=== PATIENT | male | born 1980 | race Caucasian/White ===

== ENCOUNTER 2020-01-03 17:57 | Emergency (ER) | payer OTHER ==
--- NOTE | 2020-01-03 18:16 | ED Physician Documentation ---
PD HPI ABD PAIN - Stated complaint Stated Complaint: LOWER ABD PAIN, FEVER - Chief complaint Chief Complaint: Abd Pain - History obtained from History obtained from: Patient (39-year-old gentleman with history of diverticulitis x1 5 years ago managed conservatively without surgery. No history of abdominal surgeries. Had some mild low back pain yesterday but today developed gradual onset lower abdominal pain associated with fever this aft ernoon. He has had some loose diarrheal bowel movements but not bloody. No nausea. Declines pain medication on initial evaluation.) Review of Systems Ten Systems: 10 systems reviewed and negative Constitutional: reports: Fever, Chills Cardiac: denies: Chest pain / pressure, Palpitations Respiratory: denies: Dyspnea, Cough GI: reports: Abdominal Pain. denies: Nausea, Vomiting, Constipation, Hematemesis, Bloody / black stool PD PAST MEDICAL HISTORY - Past Medical History Past Medical History: Yes GI: Diverticulitis - Past Surgical History Past Surgical History: No - Present Medications Home Medications: Ambulatory Orders Medication Instructions Recorded Confirmed Ciprofloxacin HCl [Cipro] 500 mg PO BID #20 tablet 01/03/20 metroNIDAZOLE [Flagyl] 500 mg PO TID #30 tablet 01/03/20 - Allergies Allergies/Adverse Reactions: Allergies Allergy/AdvReac Type Severity Reaction Status Date / Time No Known Drug Allergies Allergy Verified 01/03/20 18:06 - Social History Does the pt have substance abuse?: No - Family History Family history: reports: Non contributory PD ED PE NORMAL - Vitals Vital signs reviewed: Yes - General General: Alert and oriented X 3, No acute distress - HEENT HEENT: PERRL, EOMI - Neck Neck: Supple, no meningeal sign, No bony TTP - Cardiac Cardiac: RRR, No murmur - Respiratory Respiratory: No respiratory distress, Clear bilaterally - Abdomen Abdomen: Other (Soft with mild lower abdominal tenderness most marked in the left lower quadrant without surgical signs) - Back Back: No CVA TTP, No spinal TTP - Derm Derm: Normal color, Warm and dry - Neuro Neuro: Alert and oriented X 3, Normal speech - Psych Psych: Normal mood, Normal affect Results - Vitals Vitals: Vital Signs - 24 hr 01/03/20 01/03/20 01/03/20 18:06 19:13 20:05 Temperature 38.4 C H Heart Rate 110 H 100 95 Respiratory 18 18 18 Rate Blood Pressure 140/90 H 128/86 H 132/76 H O2 Saturation 97 98 96 Oxygen O2 Source Room air - Labs Labs: Laboratory Tests 01/03/20 01/03/20 01/03/20 18:19 18:22 18:22 WBC 17.2 H RBC 5.67 Hgb 15.7 Hct 46.5 MCV 82.0 MCH 27.7 MCHC 33.8 RDW 13.0 Plt Count 215 MPV 11.5 H Neut # (Auto) 12.8 H Lymph # (Auto) 2.2 [place] # (Auto) 1.9 H Eos # (Auto) 0.1 Baso # (Auto) 0.1 Absolute Nucleated RBC 0.00 Band Neuts % (Manual) Not Reportable Abnorm Lymph % (Manual) Not Reportable Nucleated RBC % 0.0 Neutrophils # (Manual) Not Reportable Lymphocytes # (Manual) Not Reportable Monocytes # (Manual) Not Reportable Eosinophils # (Manual) Not Reportable Basophils # (Manual) Not Reportable Differential Comment MANUAL=AUTO DIFF Manual Slide Review Indicated Platelet Estimate NORMAL (130-450,000) Platelet Morphology NORMAL APPEARANCE RBC Morph Micro Appear NORMAL APPEARANCE Sodium 137 Potassium 3.6 Chloride 100 L Carbon Dioxide 30 Anion Gap 7.0 BUN 10 Creatinine 1.0 Estimated GFR (MDRD) 84 L Glucose 103 H Calcium 9.4 Total Bilirubin 1.0 AST 26 ALT 39 Alkaline Phosphatase 58 Total Protein 8.4 H Albumin 4.7 Globulin 3.8 Albumin/Globulin Ratio 1.3 Lipase 27 Urine Color YELLOW Urine Clarity CLEAR Urine pH 5.5 Ur Specific [place] <=1.005 Urine Protein NEGATIVE Urine Glucose (UA) NEGATIVE Urine Ketones NEGATIVE Urine Occult Blood NEGATIVE Urine Nitrite NEGATIVE Urine Bilirubin NEGATIVE Urine Urobilinogen 0.2 (NORMAL) Ur Leukocyte Esterase NEGATIVE Ur Microscopic Review NOT INDICATED Urine Culture Comments NOT INDICATED - Rads (name of study) CT A/P Radiology: EMP read contemporaneously (uncomplicated diverticulitis) PD MEDICAL DECISION MAKING - ED course ED course: 39-year-old gentleman with history of diverticulitis presents with symptoms consistent with same. Given the fever and elevated white count a CT was done to ensure that it was not complicated diverticulitis and it was not. Got a dose of IV Cipro and Flagyl here. Departure - Departure Disposition: 01 Home, Self Care Clinical Impression: Diverticulitis of gastrointestinal tract Condition: Good Record reviewed to determine appropriate education?: Yes Instructions: ED Diverticulitis Prescriptions: Ciprofloxacin HCl [Cipro] 500 mg PO BID #20 tablet metroNIDAZOLE [Flagyl] 500 mg PO TID #30 tablet Comments: CAT scan today confirms uncomplicated diverticulitis. [place] Consider follow-up colonoscopy in 6 to 8 weeks. Do not drink alcohol or exercise very heavily while on the antibiotics. Tylenol or ibuprofen as needed for pain. Return if worse or if not improving over the next 2 to 3 days.
[2020-01-03] MEDS ORDERED: IOVERSOL 320 100 ML VIAL IVP ONE ×2 (18:23→19:09)
[2020-01-03 18:31] LABS: BASOPHILS # (AUTO) 0.1 10^3/uL (0.0-0.1); BASOPHILS % (AUTO) 0.3 %; EOSINOPHILS # (AUTO) 0.1 10^3/uL (0.0-0.7); EOSINOPHILS % (AUTO) 0.8 %; HGB - HEMOGLOBIN 15.7 g/dL (14.0-18.0); LYMPHOCYTES # (AUTO) 2.2 10^3/uL (1.5-3.5); MEAN CORPUSCULAR HEMOGLOBIN 27.7 pg (27.0-31.0); MEAN CORPUSCULAR HGB CONC 33.8 g/dL (32.0-36.0); MEAN PLATELET VOLUME 11.5 fL (7.4-11.4); MONOCYTES # (AUTO) 1.9 10^3/uL (0.0-1.0); MONOCYTES % (AUTO) 10.8 %; NEUTROPHILS # (AUTO) 12.8 10^3/uL (1.5-6.6); NEUTROPHILS % (AUTO) 74.5 %; PLT - PLATELET COUNT 215 10^3/uL (130-450); RED BLOOD COUNT 5.67 10^6/uL (4.70-6.10); WHITE BLOOD COUNT 17.2 x10^3/uL (4.8-10.8)
[2020-01-03 18:41] LABS: BILIRUBIN,URINE NEGATIVE (NEGATIVE); GLUCOSE, URINE (UA) NEGATIVE (NEGATIVE); KETONES,URINE (UA) NEGATIVE (NEGATIVE); LEUKOCYTE ESTERASE, URINE NEGATIVE (NEGATIVE); NITRITE,URINE NEGATIVE (NEGATIVE); OCCULT BLOOD,URINE NEGATIVE (NEGATIVE); PH,URINE 5.5 PH (5.0-7.5); PROTEIN,URINE NEGATIVE (NEGATIVE); UROBILINOGEN,URINE 0.2 (NORMAL) E.U./dL (NORMAL)
[2020-01-03 18:43] LABS: CLARITY,URINE CLEAR (CLEAR)
[2020-01-03 18:46] LABS: ALBUMIN 4.7 g/dL (3.2-5.5); ALBUMIN/GLOBULIN RATIO 1.3 (1.0-2.2); CALCIUM 9.4 mg/dL (8.5-10.3); TOTAL PROTEIN 8.4 g/dL (6.7-8.2)
[2020-01-03 18:58] LABS: DIFFERENTIAL COMMENT MANUAL=AUTO DIFF; PLATELET ESTIMATE, MANUAL NORMAL (130-450,000) (NORMAL); PLATELET MORPHOLOGY NORMAL APPEARANCE (NORMAL); RBC MORPHOLOGY (MULTIPLE) NORMAL APPEARANCE (NORMAL)
[2020-01-03] MEDS ORDERED: metroNIDAZOLE 500 MG/100 ML 500 MG/100 ML BAG IV ONE (19:14)
[2020-01-03] MEDS ORDERED: CIPROFLOXACIN 400 MG/200 ML 400 MG/200 ML BAG IV STA (19:14)
[2020-01-03] MEDS ORDERED: KETOROLAC 30 MG/ML VIAL IVP STA (19:17)
--- NOTE | 2020-01-03 19:51 | CT Report ---
PROCEDURE: Abdomen/Pelvis W INDICATIONS: Low abd pain IV only CONTRAST: IV CONTRAST: Optiray 320 ml: 100 PO CONTRAST: *NO PO CONTRAST TECHNIQUE: After the administration of oral and intravenous contrast, 5 mm thick sections acquired from the diap hragms to the symphysis. 5 mm thick coronal and sagittal reformats were acquired. For radiation dos e reduction, the following was used: automated exposure control, adjustment of mA and/or kV accordin g to patient size. COMPARISON: None. FINDINGS: Image quality: Excellent. ABDOMEN: Lung bases: Lung bases are clear. Heart size is normal. Solid organs: Liver and spleen are normal in size and enhancement. Gallbladder is normal. Biliary system is non dilated. Pancreas enhances normally. No adrenal nodules. Kidneys demonstrate normal size and enhancement, without hydronephrosis. There is a 2 cm simple appearing cyst in the superior pole of left kidney. Peritoneum and bowel: There are scattered colonic diverticula. There is focal thickening in the prox imal sigmoid colon with inflammatory stranding consistent with acute diverticulitis. A trace amount o f free fluid is seen in the left paracolic gutter and pelvis. There is no findings to suggest diverti cular perforation or abscess. Bowel loops demonstrate normal caliber. No free air. Nodes and vessels: No retroperitoneal or mesenteric adenopathy by size criteria. Aorta and inferior vena cava are normal in size. Miscellaneous: No ventral hernias. PELVIS: Genitourinary: Bladder wall thickness is normal. Miscellaneous: No inguinal hernias or adenopathy. Bones: No suspicious bony lesions. No vertebral body compression fractures. IMPRESSION: 1. Acute uncomplicated sigmoid diverticulitis. There is a small amount of free fluid. No findings to suggest diverticular perforation or abscess. 2. A 2 cm simple appearing cyst in left kidney. Reviewed by: Rosa Bill MD on 01/03/2020 7:50 PM PDT Approved by: Rosa Bill MD on 01/03/2020 7:50 PM PDT Station ID: [id number]
[2020-01-03 21:27] VITALS: BP 124/78
== END 2020-01-03 21:38 | disposition home or self-care (01) ==
LOC: ED 17:57
DX: K57.32 Diverticulitis of large intestine without perforation or abscess without bleeding (principal)
CPT/HCPCS: 36415; 74177; 80053; 81003; 83690; 85025; 96365; 96375; 99284; Q9967; 81001; 87086

== ENCOUNTER 2020-04-12 13:22 | Outpatient (CLI) | payer OTHER ==
[2020-04-12 14:01] VITALS: BP 128/88
--- NOTE | 2020-04-12 14:01 | SLEEP CARE CONSULTATION ---
Information from patient questionnaire entered by Hannah Jamison. I have reviewed and concur with the information entered by Hannah Jamison. This document represents the service I personally performed and the decisions made by me, Chelsy Mccarthy ARNP. History of Present Illness Service Date and Time: 04/12/2020 1322 Reason for Visit: New patient Chief Complaint: reports: Insomnia, Unrefreshed sleep, Snoring, Excessive daytime sleepiness, Observed pauses in breathing, Fatigue, Frequent awakenings at night Date of Onset: 2014 Usual bedtime: 2029; same on weekends Time it takes to fall asleep: 3+ hours Snores at night: Yes Observed to quit breathing while asleep: Yes Sleeps alone due to snoring: No Number of times waking at night: 4-6 Reasons for waking at night: reports: Snoring, Other (restlessness). denies: Choking, Gasping for air Toss, Turn, or Twitch while sleeping: Yes Recalls having dreams: No Usually gets out of bed at: 0530; [id number] on weekends Feels refreshed in the morning: No Morning headache: No Sleepy or fatigued during the day: Yes Ever fallen asleep while driving: No Takes day naps: No Dreams during day naps: No Prior sleep studies: No Additional HPI information: I had the pleasure of seeing DOROTHY LUQUE today regarding the possibility of him having a sleep disorder. His current complaints are insomnia, snoring, observed pauses in breathing, frequent awakenings at night, unrefreshed sleep, excessive daytime sleepiness and fatigue. Patient states that recently his snoring is getting worse. He is waking up after pauses in his breathing as witness by his . His is really concerned and wanting him to get checked, so he finally got a referral for testing. He is waking up several times a night and is always tired in the morning. He has no medical conditions. His father snores loudly but he hall not think he has been evaluated for sleep disorders. - Parasomnia Symptoms Ever been unable to move upon waking from sleep: No Walks in sleep: No Talks in sleep: No Ever acted out dreams in sleep: No Ever felt weak in the knees when startled or emotional: No Bothered by creepy, crawly, restless sensations in legs: No Problems with memory or concentration: No Subjective Initial [place] Sleepiness Scale score: 7 (in 2020) Past Medical History Past Medical History: denies: Hypertension, Congestive Heart Failure, Diabetes, Coronary Heart Disease, Arrythmia, Hypothyroidism, Anemia, Anxiety, Impotence, Depression, Mood disorder, GERD, Attention deficit Social History The patient's occupation is active . Patient is and lives in [place]. Have you smoked in the past 12 months: No Alcohol use: Yes Alcohol amount and frequency: 2 rarely Caffeine use: Yes Caffeine amount and frequency: 2-3/day Family History Family history of sleep disordered breathing: Yes Family Hx Sleep Apnea: Father: Snoring Allergies and Home Medications Drug allergies reviewed: Yes (NKDA) Home medication list reviewed: Yes (none) Review of Systems Weight gain over past 5 years: 15 Cardiovascular: denies: high blood pressure, palpitations, chest pain, irregular heart rate or pulse, leg or foot swelling Respiratory: denies: shortness of breath, chronic cough Gastrointestinal: denies: heartburn, difficulty swallowing Urinary: denies: impotence Neurological: reports: headaches (caffiene headaches mostly, responds to exedrine). denies: seizure, head trauma, speech dysfunction, gait or balance problems, fainting or unconsciousness Psychiatric: denies: Attention Deficit Hyperactivity, anxiety, depression, mood disorder, claustrophobia Ear/Nose/Throat: reports: wisdom teeth removed. denies: nasal congestion, sinus problems, nose bleeds, dry mouth/throat, injury to nose, tonsillectomy Endocrine: reports: sluggishness. denies: thyroid disease Musculoskeletal: reports: back pain, muscle pain or cramping Immunologic: denies: allergies to food or environment Physical Exam Blood Pressure: 128/88 Cuff size: long Heart Rate: 65 O2 Saturation: 98 Height: 6 ft 2 in Weight: 271 lb Body Mass Index: 34.7 BMI Classification: Obese Neck circumference: 18.5 (inches) HEENT: No craniofacial malformation Nostrils: patent to airflow Turbinates: normal Septum: midline Mouth and throat: narrow oropharynx Soft palate: normal Hard palate: arched Uvula: normal Uvula visualization: 25% Mallampati Class III Tongue: normal in size Tonsils: 1+ Chin and jaw: normal size and position Neck: normal w/o lymphadenopathy or thyromegaly Heart: regular rate and rhythm Lungs: clear bilaterally Impression and Plan 1. Suspected Obstructive Sleep Apnea-Hypopnea Syndrome, as suggested by a history of loud and irregular snoring, observed cessation of breath while asleep, frequent awakening during the night, unrefreshed sleep, and excessive daytime sleepiness. I reviewed with patient that a narrow oropharynx and obesity are common predisposing factors for obstructive sleep apnea-hypopnea syndrome. I recommend proceeding to polysomnography to confirm the diagnosis and to assess severity. If the patient has significant sleep disordered breathing, a manual CPAP titration study will also be performed to find the optimal treatment pressure. I informed the patient of what the sleep studies involve and after some discussion, obtained agreement to proceed. The pathophysiology of obstructive sleep apnea-hypopnea syndrome was discussed with the patient and health risks of cardiovascular and cerebrovascular disease if not treated. AAS brochure for obstructive sleep apnea-hypopnea syndrome given and reviewed. Risks of drowsy driving discussed in detail and patient advised to avoid long distance driving and to sinker puller at the first sign of drowsiness. Patient agreed to plan. * Schedule polysomnography +- manual CPAP titration study. * Avoid long distance driving or driving when feeling sleepy. * Avoid alcohol, sedative and muscle relaxant around bedtime. * Attempt to lose weight. * Review instructions provided by trained office staff on how to prepare for the sleep study. * Return for follow-up after sleep study completed. Visit Type: In Office Time Spent with Patient (minutes): 30 Provider Statement: I spent 100% of the Face to Face Visit with the patient with greater than 50% spent counseling the patient and coordination of care.
== END 2020-04-12 13:23 | disposition home or self-care (01) ==
LOC: SC 13:22
PROVIDERS: ATTEND Nurse Practitioner Family
DX: R06.83 Snoring (principal); G47.10 Hypersomnia, unspecified; R53.83 Other fatigue; G47.8 Other sleep disorders; R06.81 Apnea, not elsewhere classified; E66.9 Obesity, unspecified; Z68.34 Body mass index [BMI] 34.0-34.9, adult
CPT/HCPCS: 99204; 99212

== ENCOUNTER 2020-05-15 19:04 | Outpatient (CLI) | payer OTHER | END 2020-05-15 19:05 | disposition home or self-care (01) | LOC: SC 19:04 | PROVIDERS: ATTEND Nurse Practitioner Family | DX: G47.33 Obstructive sleep apnea (adult) (pediatric) (principal); E66.9 Obesity, unspecified; Z68.34 Body mass index [BMI] 34.0-34.9, adult | CPT/HCPCS: 95810 ==

== ENCOUNTER 2020-05-24 14:48 | Outpatient (CLI) | payer OTHER ==
--- NOTE | 2020-05-24 15:30 | SLEEP CARE CONSULTATION ---
Information from patient questionnaire entered by Fawad Stevens. I have reviewed and concur with the information entered by Fawad Stevens. This document represents the service I personally performed and the decisions made by me, Chelsy Mccarthy ARNP. History of Present Illness Service Date and Time: 05/24/2020 144 Initial [place] Sleepiness Scale score: 7 (in 2019) Current [place] Sleepiness Scale score: 12 Additional HPI information: DOROTHY LUQUE returns for follow up and results of the recently performed polysomnography. I explained the pathophysiology behind obstructive sleep apnea. We then spent quite a bit of time discussing different treatment options. For mild obstructive sleep apnea, surgery and oral appliance are alternatives to nasal CPAP therapy but in moderate or severe cases, nasal CPAP is the most effective and reliable treatment. After some discussion, the patient opted to go with the nasal CPAP therapy. Nasal autoCPAP set at 4-15 cmH20 will be ordered with rationale explained. A manual titration study will be ordered if unable to find optimal pressure with office adjustments. I explained how CPAP machine works with sample devices [id number] Dreamstation and Zentric [id number] and what to expect when using the machine. Using CPAP every night in order to get used to it was emphasized. Patient advised to put CPAP mask on before getting into bed so as not to fall asleep without CPAP. To assist acclimation to CPAP use, it could also be used for a short time during day while reading or watching TV. The patient was instructed to call the CPAP supplier to discuss any mechanical problem that may occur. If the mask given is uncomfortable or is difficult to keep on through the night even with adjustment, contact the CPAP supplier as many will replace with another mask style if notified before 30 days. If snoring or perceives is not getting enough air or too much air from the machine, notify this office. AASM patient education PAP tips reviewed and given to patient. Patient counseled not drink alcohol less than 4 hours before bedtime as it can increase snoring and apnea. Patient was cautioned about risks of drowsy driving until sleepiness symptoms resolve. Sleep Study - Results Type of Sleep Study: Polysomnography Prior sleep studies: No Polysomnography/Home Sleep Study results: IMPRESSION: The quality of the study is good. The patient had normal sleep efficiency. The sleep architecture was normal as well. Respiratory monitoring showed mild obstructive sleep apnea- hypopnea (AHI = 14.7) associated with oxyhemoglobin desaturation and mild hypoxia (noam oxygen saturation of 84 %) but not sleep fragmentation. The respiratory events occurred mainly during supine sleep (supine AHI = 64.2; non-supine = 8.02). Snore was light to loud in intensity. There was no significant periodic leg movement of sleep. Cardiac rhythm was normal sinus rhythm without significant arrhythmia. No abnormal behavior (parasomnia) observed during the night. Allergies and Home Medications Drug allergies reviewed: Yes (NKDA) Home medication list reviewed: Yes (no changes) Review of Systems Review of systems same as previous: Yes (no changes) Physical Exam Heart Rate: 71 O2 Saturation: 98 Height: 6 ft 2 in Weight: 268 lb Body Mass Index: 34.4 BMI Classification: Obese Impression and Plan 1. Obstructive Sleep Apnea-Hypopnea Syndrome, mild with AHI 14.7, with lowest oxygen saturation of 84%. Obviously this is the cause of the patients symptoms of unrefreshed sleep, and excessive daytime sleepiness. Positive pressure therapy could benefit his overall health. As mentioned above, the patient will be started on nasal autoCPAP therapy with pressure set at 4-15 cmH2O. Compliance guidelines also reviewed. A copy of compliance guidelines will be given for reference at check out. Because the apnea is more severe supine, I instructed to avoid sleeping supine using pillow positioning until able to start CPAP use. * Nasal auto CPAP therapy, pressure at 4-15 cm H2O. * Attempt to lose weight. * Avoid alcohol consumption near bedtime. * Avoid supine sleep until using CPAP. * The patient is again cautioned about driving until sleepiness completely resolves. * Return one month after CPAP obtained. I will assess response to therapy and compliance at that time. Visit Type: In Office Time Spent with Patient (minutes): 17 Provider Statement: I spent 100% of the Face to Face Visit with the patient with greater than 50% spent counseling the patient and coordination of care.
== END 2020-05-24 14:49 | disposition home or self-care (01) ==
LOC: SC 14:48
PROVIDERS: ATTEND Nurse Practitioner Family
DX: G47.33 Obstructive sleep apnea (adult) (pediatric) (principal); E66.9 Obesity, unspecified; Z68.34 Body mass index [BMI] 34.0-34.9, adult
CPT/HCPCS: 99212

== ENCOUNTER 2020-07-18 07:53 | Outpatient (CLI) | payer OTHER ==
--- NOTE | 2020-07-18 08:44 | SLEEP CARE CONSULTATION ---
Information from patient questionnaire entered by Marixa Gill. I have reviewed and concur with the information entered by Marixa Gill. This document represents the service I personally performed and the decisions made by me, Chelsy Mccarthy ARNP. History of Present Illness Service Date and Time: 07/18/2020 0753 Previous diagnosis: Mild, Obstructive Sleep Apnea-Hypopnea Syndrome AHI: 14.7 (in 2019) Reason for follow up: first compliance Equipment type: CPAP Equipment obtained from: Other ([facility]; got initial supplies and machine) Mask style: Full face Mask brand: Resmed Backup mask available: Yes (other mask) Last cushion change: 2 weeks Prior sleep studies: Yes Year and Where: 2019 - [facility] sleep Type of Sleep Study: Polysomnography HPI additional information: DOROTHY LUQUE was diagnosed to have mild, AHI 14.7, obstructive sleep apnea- hypopnea syndrome and returned today for CPAP therapy first compliance follow- up. CPAP Compliance Data - Data Reviewed with Patient Average duration of nightly device use: 7 hr 33 min Compliance rate %: 100 Current pressure setting (cmH2O): 4-15 (median 6.8, 95% 10.3, max 12.1) Humidity settin Average residual AHI: 1.9 Central apnea: 0.3 Obstructive apnea: 1.3 Subjective Patient concerns: reports: mask discomfort (getting skin irritation after wearing mask; needs to adjust a bit to get it to fit comfortably), air blowing in eyes, mask leak noise, condensation in mask/hose (more in mask), dry mouth, nose, throat. denies: aerophagia, nasal congestion, epistaxis, other Observed to snore while using device: Yes (he is a little, but is much better than before) Current pressure setting perceived as: comfortable On therapy, patient: reports: sleeping better, awakening more refreshed, being more awake and alert during the day, more rested overall. denies: drowsiness while driving Initial [place] Sleepiness Scale score: 7 (in 2019) Current [place] Sleepiness Scale score: 7 Allergies and Home Medications Drug allergies reviewed: Yes (NKDA) Home medication list reviewed: Yes (no changes) Review of Systems Review of systems same as previous: Yes (no changes) Physical Exam Heart Rate: 67 O2 Saturation: 98 Height: 6 ft 2 in Weight: 269 lb Body Mass Index: 34.5 BMI Classification: Obese Impression and Plan 1. Obstructive Sleep Apnea-Hypopnea Syndrome, mild, with excellent treatment compliance and good apnea control. On CPAP therapy, the patient has better sleep quality and is more rested overall. He has been trying to sleep on his side and getting air leaking into his eyes and leak noises. He has been using eye drops to moisten his eyes since he already has a dry eye problem. Mask leaks can be reduced by washing mask daily and changing mask cushions more frequently to improve mask seal and comfort. Additionally, mask leaks predominately from when patient sleeps on their side can be reduced by using a CPAP pillow. A CPAP pillow sample was shown. This and other styes can be purchased online. I also encouraged him to use a sleeping mask over his eyes and eye moistening drops before bedtime to reduce air in eyes and eye dryness. He has been having some issue with the mask not fitting well over the top of his nose and causing a rash. I will write for a mask refitting to see if he can find a better fitting mask and talked to him about mask barriers to protect his skin when wearing the mask. I will adjust his pressure to 7-11 cm H2O to reflect the pressures he has been using with good control of his apnea. Patient's apnea severity and rationale for treatment to reduce apnea, improve sleep quality and reduce cardiovascular and cerebrovascular events was reviewed. * Change auto CPAP pressure to 7-11 cmH2O * Notify me if snoring with mask or feeling that the pressure is too much or too little * Attempt to lose weight * Call this office if any problems using CPAP * Return for follow up in 1-2 months , or sooner if concerns arise Counseling Topics: Spare mask, Weight loss health impact Visit Type: In Office Time Spent with Patient (minutes): 24 Provider Statement: I spent 100% of the Face to Face Visit with the patient with greater than 50% spent counseling the patient and coordination of care.
== END 2020-07-18 07:54 | disposition home or self-care (01) ==
LOC: SC 07:53
PROVIDERS: ATTEND Nurse Practitioner Family
DX: G47.33 Obstructive sleep apnea (adult) (pediatric) (principal); E66.9 Obesity, unspecified; Z68.34 Body mass index [BMI] 34.0-34.9, adult
CPT/HCPCS: 99212; 99213

== ENCOUNTER 2020-09-05 14:41 | Outpatient (CLI) | payer OTHER ==
--- NOTE | 2020-09-05 15:16 | SLEEP CARE CONSULTATION ---
Information from patient questionnaire entered by Marixa Gill. I have reviewed and concur with the information entered by Marixa Gill. This document represents the service I personally performed and the decisions made by , Chelsy Mccarthy ARNP. History of Present Illness Service Date and Time: 09/05/2020 1441 Previous diagnosis: Mild, Obstructive Sleep Apnea-Hypopnea Syndrome AHI: 14.7 (in 2019) Reason for follow up: other (6 week with pressure change) Equipment type: CPAP Equipment obtained from: Other ([facility]; getting supplies) Mask style: Full face Backup mask available: Yes (old mask) Last cushion change: 1 month Prior sleep studies: Yes Year and Where: 2019 - [facility] Type of Sleep Study: Polysomnography HPI additional information: DOROTHY LUQUE was diagnosed to have mild, AHI 14.7, obstructive sleep apnea- hypopnea syndrome and returned today for CPAP therapy 6 week pressure change follow-up. CPAP Compliance Data - Data Reviewed with Patient Average duration of nightly device use: 7 hr 17 min Compliance rate %: 93 (40 days) Current pressure setting (cmH2O): 7-11 Humidity settin Average residual AHI: 1.4 Subjective Patient concerns: reports: mask discomfort (still not fitting after 1-2 weeks of use), air blowing in eyes, mask leak noise, condensation in mask/hose (intermittent, 1-2 times a week), dry mouth, nose, throat (back and forth with condensation). denies: aerophagia, nasal congestion, epistaxis, other Observed to snore while using device: No (once in a while) Current pressure setting perceived as: comfortable On therapy, patient: reports: sleeping better, awakening more refreshed, being more awake and alert during the day, more rested overall. denies: drowsiness while driving Initial [place] Sleepiness Scale score: 7 (in 2020) Current [place] Sleepiness Scale score: 9 Allergies and Home Medications Home medication list reviewed: Yes (no changes) Review of Systems Review of systems same as previous: Yes (no changes) Physical Exam Heart Rate: 96 O2 Saturation: 98 Height: 6 ft 2 in Weight: 272 lb Body Mass Index: 34.9 BMI Classification: Obese Impression and Plan 1. Obstructive Sleep Apnea-Hypopnea Syndrome, mild, with good treatment compliance and good apnea control. On CPAP therapy, the patient has better sleep quality and is more rested overall. Patient has had some issues with the mask fit. [facility] has still not reached out to him about changing the mask. I advised him to reach out to them again and if unable to contact them or no results to call our office for assistance. He is getting air leaking in his eyes from the mask not fitting well after the initial 1-2 weeks of use. Mask leaks can be reduced by washing mask daily and changing mask cushions more frequently to improve mask seal and comfort. He has been using some wipes on the mask and I encouraged him to try just warm soapy water because the cleaning chemicals may be adding to the warping of the mask plastic and causing increase in leaking. He also gets some condensation in the hose or dry mouth intermittently, he thinks his humidity is at 5-6 area and the heated hose may be about 90 degrees. He has been adjusting the machine settings up and down but has not yet found a good setting. I advised him to move the machine lower than his head which can reduce condensation getting into the mask. He is to check the ambient temperature of his sleeping room as this can affect the humidity/condensation from the machine as well and make any changes as needed. He voiced understanding. Patient's apnea severity and rationale for treatment to reduce apnea, improve sleep quality and reduce cardiovascular and cerebrovascular events was reviewed. * Continue autoCPAP pressure at 7-11 cmH2O * Notify me if snoring with mask or feeling that the pressure is too much or too little * Attempt to lose weight * Call this office if any problems using CPAP * Return for follow up in 3 months, or sooner if concerns arise Counseling Topics: Spare mask, Weight loss health impact Visit Type: In Office Time Spent with Patient (minutes): 21 Provider Statement: I spent 100% of the Face to Face Visit with the patient with greater than 50% spent counseling the patient and coordination of care.
== END 2020-09-05 14:42 | disposition home or self-care (01) ==
LOC: SC 14:41
PROVIDERS: ATTEND Nurse Practitioner Family
DX: G47.33 Obstructive sleep apnea (adult) (pediatric) (principal); E66.9 Obesity, unspecified; Z68.34 Body mass index [BMI] 34.0-34.9, adult
CPT/HCPCS: 99212; 99213

== ENCOUNTER 2020-12-06 14:26 | Outpatient (CLI) | payer OTHER ==
--- NOTE | 2020-12-06 14:45 | SLEEP CARE CONSULTATION ---
Information from patient questionnaire entered by Marixa Gill. I have reviewed and concur with the information entered by Marixa Gill. This document represents the service I personally performed and the decisions made by , Chelsy Mccarthy ARNP. History of Present Illness Service Date and Time: 12/06/2020 1426 Previous diagnosis: Mild, Obstructive Sleep Apnea-Hypopnea Syndrome AHI: 14.7 (in 2019) Reason for follow up: three month Equipment type: CPAP Equipment obtained from: Other ([facility]; getting supplies) Mask style: Full face (scheduled for a fitting for mask) Backup mask available: Yes (old mask) Last cushion change: 1 month Prior sleep studies: Yes Year and Where: 2019 - [facility] Type of Sleep Study: Polysomnography HPI additional information: DOROTHY LUQUE was diagnosed to have mild, AHI 14.7, obstructive sleep apnea- hypopnea syndrome and returned today for CPAP therapy three month follow-up. CPAP Compliance Data - Data Reviewed with Patient Average duration of nightly device use: 6 hr 46 min Compliance rate %: 89 (90 days) Current pressure setting (cmH2O): 7-11 Humidity settin Average residual AHI: 1.5 Average large leak: 4.0 L/min Subjective Patient concerns: reports: mask discomfort, air blowing in eyes, mask leak noise, dry mouth, nose, throat (dry mouth, getting more rare with back on auto for humidity.), other (snore while using device). denies: aerophagia, condensation in mask/hose, nasal congestion, epistaxis Observed to snore while using device: Yes (not very much, once in a while) Current pressure setting perceived as: comfortable On therapy, patient: reports: sleeping better, awakening more refreshed, being more awake and alert during the day, more rested overall. denies: drowsiness while driving Initial [place] Sleepiness Scale score: 7 (in 2020) Current [place] Sleepiness Scale score: 5 Allergies and Home Medications Home medication list reviewed: Yes (no changes) Review of Systems Review of systems same as previous: Yes (no changes) Physical Exam Heart Rate: 77 O2 Saturation: 96 Height: 6 ft 2 in Weight: 273 lb Body Mass Index: 35.0 BMI Classification: Obese Impression and Plan 1. Obstructive Sleep Apnea-Hypopnea Syndrome, mild, with good treatment compliance and good apnea control. On CPAP therapy, the patient has better sleep quality and is more rested overall. He is still having issues with current full face mask. He has air blowing in his eyes and mask leak noises. His eyes are dry in the morning. He has tried to use as liner and to cover his eyes. He has an appointment for a mask fitting to try a under nose/over mouth full face mask like the Airfit F30. He is otherwise satisfied with his treatment and has good response from CPAP therapy. Patient's apnea severity and rationale for treatment to reduce apnea, improve sleep quality and reduce cardiovascular and cerebrovascular events was reviewed. * Continue auto CPAP pressure at 7-11 cmH2O * Notify me if snoring with mask or feeling that the pressure is too much or too little * Attempt to lose weight * Call this office if any problems using CPAP * Return for follow up in 6 months, or sooner if concerns arise Counseling Topics: Spare mask, Weight loss health impact Visit Type: In Office Time Spent with Patient (minutes): 14 Provider Statement: I spent 100% of the Face to Face Visit with the patient with greater than 50% spent counseling the patient and coordination of care.
== END 2020-12-06 14:27 | disposition home or self-care (01) ==
LOC: SC 14:26
PROVIDERS: ATTEND Nurse Practitioner Family
DX: G47.33 Obstructive sleep apnea (adult) (pediatric) (principal); E66.9 Obesity, unspecified; Z68.35 Body mass index [BMI] 35.0-35.9, adult
CPT/HCPCS: 99212

== ENCOUNTER 2021-07-05 08:44 | Outpatient (CLI) | payer OTHER ==
--- NOTE | 2021-07-05 10:38 | MRI Report ---
PROCEDURE: Knee RT W/O INDICATIONS: PAIN IN KNEE TECHNIQUE: Noncontrast sagittal PD fast spin echo and T2 fast spin echo with fat saturation, sagittal 3-D gradie nt sequence with fat saturation; coronal T1 spin echo and PD fast spin echo with fat saturation, and axial PD fast spin echo with fat saturation through the knee. COMPARISON: None. FINDINGS: Image quality: Excellent. Menisci: The medial and lateral menisci demonstrate normal morphology and internal signal. The meni scal root ligaments appear intact. Cruciate ligaments: The anterior and posterior cruciate ligaments appear intact. Medial structures: The medial collateral ligament appears intact. Visualized portions of the pes ans erinus tendons appear normal. There is a small amount of medial bursal fluid. Lateral structures: The lateral collateral ligament, long and short heads of the biceps femoris tend on appear intact. The popliteus tendon appears normal. Iliotibial band appears normal. Anterior structures: The quadriceps and patellar tendons appear intact. Mild T2 signal lesion within the quadriceps and patellar tendons at the patellar insertion sites. Mild medial patellar subluxatio n. No femoral trochlear dysplasia or ventral trochlear prominence. No edema in the infrapatellar fat pad. Bones and cartilage: No bone marrow contusions or fractures. The cartilage of the medial and latera l femorotibial compartments, as well as the patellofemoral compartment, appears normal in thickness. Joint space: There is a small knee joint effusion and a trace Stewart's cyst. Normal appearing synovi al plicae are incidentally noted. IMPRESSION: 1. No internal derangement. 2. Mild medial bursitis. 3. Mild medial subluxation of the patella. 4. Small knee joint effusion and trace Stewart's cyst. 5. Mild quadriceps and patellar tendinopathy. Reviewed by: Steve Lambert MD on 07/05/2021 9:37 AM [place] Approved by: Steve Lambert MD on 07/05/2021 9:37 AM [facility] Station ID: [id number]
== END 2021-07-05 08:45 | disposition home or self-care (01) ==
LOC: DI 08:44
PROVIDERS: ATTEND Nurse Practitioner Family
DX: M25.561 Pain in right knee (principal); M71.561 Other bursitis, not elsewhere classified, right knee; M76.51 Patellar tendinitis, right knee; M25.461 Effusion, right knee

== ENCOUNTER 2021-07-11 08:17 | Emergency (ER) | payer OTHER ==
[2021-07-11] MEDS ORDERED: MAG HYDROX/AL HYDROX/SIMETH 30 ML UDC PO STA (08:39)
[2021-07-11] MEDS ORDERED: LIDOCAINE VISCOUS 2% 15 ML UDC MM STA (08:39)
[2021-07-11 08:55] LABS: BASOPHILS # (AUTO) 0.1 10^3/uL (0.0-0.1); BASOPHILS % (AUTO) 0.9 %; EOSINOPHILS # (AUTO) 0.3 10^3/uL (0.0-0.7); EOSINOPHILS % (AUTO) 3.7 %; HCT - HEMATOCRIT 46.6 % (42.0-52.0); HGB - HEMOGLOBIN 15.6 g/dL (14.0-18.0); LYMPHOCYTES # (AUTO) 2.1 10^3/uL (1.5-3.5); LYMPHOCYTES % (AUTO) 29.8 %; MEAN CORPUSCULAR HEMOGLOBIN 27.1 pg (27.0-31.0); MEAN CORPUSCULAR HGB CONC 33.5 g/dL (32.0-36.0); MEAN PLATELET VOLUME 11.1 fL (7.4-11.4); MONOCYTES # (AUTO) 0.8 10^3/uL (0.0-1.0); MONOCYTES % (AUTO) 11.2 %; NEUTROPHILS # (AUTO) 3.8 10^3/uL (1.5-6.6); PLT - PLATELET COUNT 256 10^3/uL (130-450); RED BLOOD COUNT 5.75 10^6/uL (4.70-6.10); RED CELL DISTRIBUTION WIDTH 12.6 % (12.0-15.0)
--- NOTE | 2021-07-11 09:12 | ED Physician Documentation ---
PD HPI CHEST PAIN - Stated complaint Stated Complaint: CHEST PX - Chief complaint Chief Complaint: Cardiac - History obtained from History obtained from: Patient - History of Present Illness Timing - onset: How many days ago (c 3) Timing - onset during: Rest Timing - duration: Days (3) Timing - details: Gradual onset, Still present Quality: Sharp, Pain Location: Substernal, Left chest Radiation: Abdominal. No: Jaw, Neck, Back, Right upper extremity Improved by: Nothing Worsened by: Other (burping) Associated symptoms: Feeling faint / dizzy. No: Shortness of air, Diaphoresis, Nausea, Vomiting, General Weakness, Palpitations, Cough Similar symptoms before: Has not had sx before Recently seen: Not recently seen - Additional information Additional information: Please well 41-year-old male developed some burping and pain in his left chest about 3 days ago when he has had persistence of the symptoms since. The burping has slowed down the pain is persisted he does not he has had much relief with the use of antacids. He does not have any injury to his chest wall that he is aware of he has not had upper respiratory tract infection. He does eyes any exertional dyspnea or change in his symptoms related to exertion. Review of Systems Constitutional: denies: Fever Eyes: denies: Decreased vision Ears: denies: Ear pain Nose: denies: Congestion Throat: denies: Sore throat Cardiac: reports: Chest pain / pressure. denies: Palpitations, Pedal edema, Calf pain Respiratory: denies: Dyspnea, Cough, Wheezing GI: reports: Abdominal Pain. denies: Nausea, Vomiting, Constipation, Diarrhea : denies: Dysuria, Frequency Skin: denies: Rash Musculoskeletal: denies: Neck pain, Back pain, Extremity pain Neurologic: denies: Generalized weakness, Focal weakness, Numbness PD PAST MEDICAL HISTORY - Past Medical History Past Medical History: Yes GI: Diverticulitis - Past Surgical History Past Surgical History: No - Present Medications Home Medications: Ambulatory Orders Medication Instructions Recorded Confirmed No Known Home Medications 07/11/21 07/11/21 - Allergies Allergies/Adverse Reactions: Allergies Allergy/AdvReac Type Severity Reaction Status Date / Time No Known Drug Allergies Allergy Verified 07/11/21 08:33 - Social History Does the pt smoke?: No Smoking Status: Never smoker Does the pt have substance abuse?: No PD ED PE NORMAL - Vitals Vital signs reviewed: Yes (hypertensive) - General General: Alert and oriented X 3, No acute distress, Well developed/nourished - HEENT HEENT: Atraumatic, PERRL, EOMI - Neck Neck: Supple, no meningeal sign, No bony TTP - Cardiac Cardiac: RRR, No murmur - Respiratory Respiratory: No respiratory distress, Clear bilaterally, Other (palpation of the chest wall anteriorly over left parasternal area reproduces the pain the patient is experiencing .) - Abdomen Abdomen: Soft, Non tender - Back Back: No CVA TTP, No spinal TTP - Derm Derm: Normal color, Warm and dry, No rash - Extremities Extremities: No deformity, No edema - Neuro Neuro: Alert and oriented X 3, 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, No motor deficit, No sensory deficit, Normal speech Eye Opening: Spontaneous Motor: Obeys Commands Verbal: Oriented GCS Score: 15 - Psych Psych: Normal mood, Normal affect Results - Vitals Vitals: Vital Signs - 24 hr 07/11/21 07/11/21 08:29 08:48 Temperature 36.5 C Heart Rate 69 68 Respiratory 20 18 Rate Blood Pressure 134/88 H O2 Saturation 98 98 Oxygen O2 Source Room air - EKG (time done) 0822 Rate: Rate (enter#) (74) Rhythm: NSR [place]: LAD Compare to prior EKG: Old EKG unavailable Computer interpretation: Agree with computer - Labs Labs: Laboratory Tests 07/11/21 07/11/21 07/11/21 08:48 08:48 08:48 WBC 7.0 RBC 5.75 Hgb 15.6 Hct 46.6 MCV 81.0 MCH 27.1 MCHC 33.5 RDW 12.6 Plt Count 256 MPV 11.1 Neut # (Auto) 3.8 Lymph # (Auto) 2.1 [place] # (Auto) 0.8 Eos # (Auto) 0.3 Baso # (Auto) 0.1 Absolute Nucleated RBC 0.00 Nucleated RBC % 0.0 Sodium 140 Potassium 4.3 Chloride 103 Carbon Dioxide 27 Anion Gap 10.0 BUN 17 Creatinine 1.0 Estimated GFR (MDRD) 83 L Glucose 105 H Calcium 9.9 Total Bilirubin 0.6 AST 34 ALT 51 Alkaline Phosphatase 51 Troponin I High Sens 2.5 Total Protein 8.2 Albumin 4.6 Globulin 3.6 Albumin/Globulin Ratio 1.3 Lipase 42 - Rads (name of study) chest Radiology: Prelim report reviewed (Impression: 1. No acute cardiopulmonary abnormality.), EMP read indepedently, See rad report PD MEDICAL DECISION MAKING - ED course Complexity details: reviewed results, re-evaluated patient, considered differential, d/w patient ED course: 41-year-old male with 3 days of chest pain has a pleuritic component to his chest pain he has chest pain reproducible by direct palpation of the chest wall and he has negative studies for his chest including a normal electrocardiogram and troponin. He did not have relief with use of the GI cocktail this was given because of his complaints of belching associated with his pain. He is administered dexamethasone and Toradol for costochondritis. I did search for a reason for this patient to have chest wall pain we did not discover anything on review. Departure - Departure Disposition: 01 Home, Self Care Clinical Impression: Chest wall pain Condition: Stable Instructions: ED Chest Pain Costochondritis Follow-Up: KARISSA Bolivar [Provider Group] Forms: Activity restrictions
--- NOTE | 2021-07-11 09:12 | XRAY Report ---
PROCEDURE: Chest 1 View X-Ray INDICATIONS: Chest pain TECHNIQUE: One view of the chest was acquired. COMPARISON: None. FINDINGS: SUPPORT DEVICES: None. LUNGS/PLEURA: Reduced lung volumes. No focal consolidation, pleural effusion or space-occupying pneum othorax. MEDIASTINUM: The cardiomediastinal silhouette is within normal limits. BONES/SOFT TISSUES: No acute abnormality. IMPRESSION: 1.No acute cardiopulmonary abnormality. Reviewed by: Pedro Coles MD on 07/11/2021 9:11 AM [facility] Approved by: Pedro Coles MD on 07/11/2021 9:11 AM [facility] Station ID: [id number]
[2021-07-11 09:13] LABS: ALBUMIN 4.6 g/dL (3.2-5.5); ALBUMIN/GLOBULIN RATIO 1.3 (1.0-2.2); BILIRUBIN,TOTAL 0.6 mg/dL (0.2-1.0); CALCIUM 9.9 mg/dL (8.5-10.3); POTASSIUM 4.3 mmol/L (3.5-5.0); TOTAL PROTEIN 8.2 g/dL (6.7-8.2)
[2021-07-11] MEDS ORDERED: KETOROLAC 30 MG/ML VIAL IVP STA (09:24)
[2021-07-11] MEDS ORDERED: DEXAMETHASONE 10 MG/ML VIAL IVP STA (09:24)
[2021-07-11 09:55] VITALS: BP 127/88
== END 2021-07-11 10:03 | disposition home or self-care (01) ==
LOC: ED 08:17
DX: R07.89 Other chest pain (principal)
CPT/HCPCS: 36415; 71045; 80053; 83690; 84484; 85025; 93005; 96374; 99283; 99284; A9270

== ENCOUNTER 2021-07-25 20:16 | Emergency (ER) | payer OTHER ==
[2021-07-25] MEDS ORDERED: SODIUM CHLORIDE 0.9% 1,000 ML IV STA (20:28)
--- NOTE | 2021-07-25 20:44 | ED Physician Documentation ---
History of Present Illness - Stated complaint Stated Complaint: FEVER,ABD PX - Chief complaint Chief Complaint: Abd Pain - History obtained from History obtained from: Patient - Additonal information Additional information: 41yM with pmh diverticulosis p/w BL LQ pain gradual onset over past 2 days, constant, aching, radiating to L flank, worse on the LLQ, worse with moving, a/w fever. denies cp, soa, n/v/d, dizziness. stringy brown BM this am. Review of Systems Ten Systems: 10 systems reviewed and negative Constitutional: reports: Fever, Chills GI: reports: Abdominal Pain. denies: Nausea, Vomiting, Diarrhea, Bloody / black stool : denies: Dysuria, Frequency, Hesitancy, Hematuria Musculoskeletal: reports: Back pain PD PAST MEDICAL HISTORY - Past Medical History GI: Diverticulitis - Past Surgical History Past Surgical History: No - Present Medications Home Medications: Ambulatory Orders Medication Instructions Recorded Confirmed Amox/Clav 875/125 [Augmentin 1 tablet PO Q12H 10 Days #20 tablet 07/25/21 875/125 Tab] Lactobacillus Combination No.4 1 each PO QDAC #20 tab 07/25/21 [Probiotic] metroNIDAZOLE [Flagyl] 500 mg PO BID 10 Days #20 tablet 07/25/21 - Allergies Allergies/Adverse Reactions: Allergies Allergy/AdvReac Type Severity Reaction Status Date / Time No Known Drug Allergies Allergy Verified 07/25/21 20:27 - Social History Does the pt smoke?: No Smoking Status: Never smoker Does the pt have substance abuse?: No PD ED PE NORMAL - Vitals Vital signs reviewed: Yes - General General: Alert and oriented X 3, No acute distress, Well developed/nourished - HEENT HEENT: Atraumatic, PERRL, EOMI - Neck Neck: Supple, no meningeal sign - Cardiac Cardiac: RRR - Respiratory Respiratory: No respiratory distress, Clear bilaterally - Abdomen Abdomen: Other (LLQ ttp. otherwise ntnd) - Back Back: No CVA TTP - Derm Derm: Normal color, Warm and dry - Extremities Extremities: No deformity, No edema - Neuro Neuro: Alert and oriented X 3 - Psych Psych: Normal mood, Normal affect Results - Vitals Vitals: Vital Signs - 24 hr 07/25/21 07/25/21 07/25/21 20:22 20:27 23:00 Temperature 38.3 C H 38.3 C H Heart Rate 122 H 122 H 93 Respiratory 18 18 16 Rate Blood Pressure 151/98 H 151/98 H 114/78 O2 Saturation 97 97 97 Oxygen O2 Source Room air - EKG (time done) 2036 Rate: Rate (enter#) (95) Rhythm: NSR [place]: LAD Intervals: Normal SC Compare to prior EKG: Unchanged from prior EKG (07/11/21) - Labs Labs: Laboratory Tests 07/25/21 07/25/21 07/25/21 19:35 19:35 19:35 WBC 10.0 RBC 5.60 Hgb 15.3 Hct 44.8 MCV 80.0 MCH 27.3 MCHC 34.2 RDW 12.8 Plt Count 209 MPV 11.5 H Neut # (Auto) 7.1 H Lymph # (Auto) 1.5 [place] # (Auto) 1.2 H Eos # (Auto) 0.2 Baso # (Auto) 0.1 Absolute Nucleated RBC 0.00 Nucleated RBC % 0.0 Sodium 138 Potassium 3.4 L Chloride 99 L Carbon Dioxide 28 Anion Gap 11.0 BUN 11 Creatinine 1.2 Estimated GFR (MDRD) 67 L Glucose 106 H Lactic Acid 0.9 Calcium 9.8 Total Bilirubin 0.8 AST 31 ALT 46 Alkaline Phosphatase 50 Total Protein 8.2 Albumin 4.5 Globulin 3.7 Albumin/Globulin Ratio 1.2 Lipase 21 L Urine Color Urine Clarity Urine pH Ur Specific [place] Urine Protein Urine Glucose (UA) Urine Ketones Urine Occult Blood Urine Nitrite Urine Bilirubin Urine Urobilinogen Ur Leukocyte Esterase Ur Microscopic Review Urine Culture Comments 07/25/21 21:40 WBC RBC Hgb Hct MCV MCH MCHC RDW Plt Count MPV Neut # (Auto) Lymph # (Auto) [place] # (Auto) Eos # (Auto) Baso # (Auto) Absolute Nucleated RBC Nucleated RBC % Sodium Potassium Chloride Carbon Dioxide Anion Gap BUN Creatinine Estimated GFR (MDRD) Glucose Lactic Acid Calcium Total Bilirubin AST ALT Alkaline Phosphatase Total Protein Albumin Globulin Albumin/Globulin Ratio Lipase Urine Color YELLOW Urine Clarity CLEAR Urine pH 7.0 Ur Specific [place] <=1.005 Urine Protein NEGATIVE Urine Glucose (UA) NEGATIVE Urine Ketones NEGATIVE Urine Occult Blood NEGATIVE Urine Nitrite NEGATIVE Urine Bilirubin NEGATIVE Urine Urobilinogen 0.2 (NORMAL) Ur Leukocyte Esterase NEGATIVE Ur Microscopic Review NOT INDICATED Urine Culture Comments NOT INDICATED PD MEDICAL DECISION MAKING - ED course ED course: 41-year-old man with past medical history of diverticulitis presents with diverticulitis flare today. Antibiotics provided in the emergency department and prescription was given to the patient. Return precautions given. Plan to follow-up with his primary doctor. Departure - Departure Disposition: 01 Home, Self Care Clinical Impression: Diverticulitis Condition: Good Instructions: ED Diverticulitis Prescriptions: Amox/Clav 875/125 [Augmentin 875/125 Tab] 1 tablet PO Q12H 10 Days #20 tablet metroNIDAZOLE [Flagyl] 500 mg PO BID 10 Days #20 tablet Lactobacillus Combination No.4 [Probiotic] 1 each PO QDAC #20 tab Comments: You are seen in the emergency department for diverticulitis. Blood cultures will send tomorrow should result in a couple of days. Make sure you take your antibiotics until that time. We may call you to adjust your antibiotic regimen depending on the culture results. Please return to the emergency department if you do not have improvement in 2 to 3 days, if you have any other new or worsening symptoms or other concerns. Plan to follow-up with your primary doctor. Discharge Date/Time: 07/25/21 23:16
[2021-07-25 20:45] LABS: BASOPHILS # (AUTO) 0.1 10^3/uL (0.0-0.1); BASOPHILS % (AUTO) 0.5 %; EOSINOPHILS # (AUTO) 0.2 10^3/uL (0.0-0.7); EOSINOPHILS % (AUTO) 1.9 %; HCT - HEMATOCRIT 44.8 % (42.0-52.0); HGB - HEMOGLOBIN 15.3 g/dL (14.0-18.0); LYMPHOCYTES # (AUTO) 1.5 10^3/uL (1.5-3.5); LYMPHOCYTES % (AUTO) 14.5 %; MEAN CORPUSCULAR HEMOGLOBIN 27.3 pg (27.0-31.0); MEAN CORPUSCULAR HGB CONC 34.2 g/dL (32.0-36.0); MEAN PLATELET VOLUME 11.5 fL (7.4-11.4); MONOCYTES # (AUTO) 1.2 10^3/uL (0.0-1.0); MONOCYTES % (AUTO) 12.1 %; NEUTROPHILS # (AUTO) 7.1 10^3/uL (1.5-6.6); NEUTROPHILS % (AUTO) 70.7 %; PLT - PLATELET COUNT 209 10^3/uL (130-450); RED CELL DISTRIBUTION WIDTH 12.8 % (12.0-15.0)
[2021-07-25 20:59] LABS: ALBUMIN 4.5 g/dL (3.2-5.5); ALBUMIN/GLOBULIN RATIO 1.2 (1.0-2.2); BILIRUBIN,TOTAL 0.8 mg/dL (0.2-1.0); CALCIUM 9.8 mg/dL (8.5-10.3); CREATININE 1.2 mg/dL (0.6-1.2); POTASSIUM 3.4 mmol/L (3.5-5.0); TOTAL PROTEIN 8.2 g/dL (6.7-8.2)
[2021-07-25] MEDS ORDERED: PIPERACILLIN/TAZOBACTAM 3.375 GM in SODIUM CHLORIDE 0.9% MINIBAG 100 ML IV STA (21:07)
[2021-07-25] MEDS ORDERED: ACETAMINOPHEN 325 MG TABLET PO STA (21:08)
[2021-07-25] MEDS ORDERED: iohexoL-300 100 ML VIAL ONE (21:21)
[2021-07-25] MEDS ORDERED: iohexoL-300 100 ML VIAL IVP ONE (21:38)
--- NOTE | 2021-07-25 22:09 | CT Report ---
PROCEDURE: Abdomen/Pelvis W INDICATIONS: abd pain, sepsis, hx diverticulitis CONTRAST: IV CONTRAST: Isovue 300 ml: 100 PO CONTRAST: *NO PO CONTRAST TECHNIQUE: After the administration of intravenous contrast, 5 mm thick sections acquired from the diaphragms to the symphysis. 5 mm thick coronal and sagittal reformats were acquired. For radiation dose reducti on, the following was used: automated exposure control, adjustment of mA and/or kV according to cassidy ent size. COMPARISON: CT abdomen pelvis 01/03/2020. FINDINGS: Image quality: Excellent. ABDOMEN: Lung bases: There is mild dependent atelectasis bilaterally. Heart size is normal. Solid organs: There is diffuse hypoattenuation of the liver consistent with fatty infiltration. Gallb ladder appears within normal limits without calcified gallstones. Biliary system is non dilated. The spleen is normal in size. Pancreas enhances normally without peripancreatic fat stranding or fluid c ollections. No adrenal nodules. Kidneys demonstrate no hydronephrosis. There are 2 cysts within the left kidney redemonstrated. These include a lobulated cyst within the interpolar region measuring up to 1.5 cm. Peritoneum and bowel: Stomach and small bowel loops demonstrate normal wall thickness and caliber. T he appendix is normal in appearance. There is colonic diverticulosis with associated diverticular and segmental colonic wall thickening in the proximal sigmoid colon as well as pericolonic fat stranding consistent with acute diverticulitis. A minimal amount of free fluid is demonstrated within the left paracolic gutter. No diverticular abscess or macroscopic free air. Nodes and vessels: No retroperitoneal or mesenteric adenopathy by size criteria. Aorta and inferior vena cava are normal in size. Miscellaneous: No ventral hernias. PELVIS: Genitourinary: Bladder wall thickness is normal. Miscellaneous: No inguinal hernias or adenopathy. Bones: No suspicious bony lesions. No vertebral body compression fractures. IMPRESSION: 1. Sigmoid diverticulitis without evidence of diverticular abscess or macroscopic free air. Reviewed by: German Gray MD on 07/25/2021 10:08 PM PST Approved by: German Gray MD on 07/25/2021 10:08 PM PST Station ID: [id number]
[2021-07-25 22:17] LABS: BILIRUBIN,URINE NEGATIVE (NEGATIVE); GLUCOSE, URINE (UA) NEGATIVE (NEGATIVE); KETONES,URINE (UA) NEGATIVE (NEGATIVE); LEUKOCYTE ESTERASE, URINE NEGATIVE (NEGATIVE); NITRITE,URINE NEGATIVE (NEGATIVE); OCCULT BLOOD,URINE NEGATIVE (NEGATIVE); PROTEIN,URINE NEGATIVE (NEGATIVE); UROBILINOGEN,URINE 0.2 (NORMAL) E.U./dL (NORMAL)
[2021-07-25 22:19] LABS: CLARITY,URINE CLEAR (CLEAR)
[2021-07-25 23:03] VITALS: BP 114/78
== END 2021-07-25 23:16 | disposition home or self-care (01) ==
LOC: ED 20:16
DX: K57.32 Diverticulitis of large intestine without perforation or abscess without bleeding (principal)
CPT/HCPCS: 36415; 74177; 80053; 81003; 83605; 83690; 85025; 87040; 96361; 96365; 99284; A9270; Q9967; 81001; 87086

== ENCOUNTER 2022-05-07 15:55 | Emergency (ER) | payer OTHER ==
[2022-05-07 16:22] LABS: BILIRUBIN,URINE NEGATIVE (NEGATIVE); CLARITY,URINE CLEAR (CLEAR); GLUCOSE, URINE (UA) NEGATIVE (NEGATIVE); KETONES,URINE (UA) TRACE mg/dL (NEGATIVE); LEUKOCYTE ESTERASE, URINE NEGATIVE (NEGATIVE); NITRITE,URINE NEGATIVE (NEGATIVE); OCCULT BLOOD,URINE NEGATIVE (NEGATIVE); PROTEIN,URINE NEGATIVE (NEGATIVE); UROBILINOGEN,URINE 0.2 (NORMAL) E.U./dL (NORMAL)
[2022-05-07 16:25] LABS: BASOPHILS # (AUTO) 0.1 10^3/uL (0.0-0.1); BASOPHILS % (AUTO) 0.4 %; EOSINOPHILS # (AUTO) 0.1 10^3/uL (0.0-0.7); EOSINOPHILS % (AUTO) 0.9 %; HGB - HEMOGLOBIN 15.7 g/dL (14.0-18.0); LYMPHOCYTES # (AUTO) 2.4 10^3/uL (1.5-3.5); LYMPHOCYTES % (AUTO) 15.6 %; MEAN CORPUSCULAR HEMOGLOBIN 27.2 pg (27.0-31.0); MEAN CORPUSCULAR HGB CONC 34.1 g/dL (32.0-36.0); MEAN CORPUSCULAR VOLUME 79.6 fL (80.0-94.0); MEAN PLATELET VOLUME 11.2 fL (7.4-11.4); MONOCYTES # (AUTO) 1.6 10^3/uL (0.0-1.0); MONOCYTES % (AUTO) 10.2 %; NEUTROPHILS # (AUTO) 11.2 10^3/uL (1.5-6.6); NEUTROPHILS % (AUTO) 72.6 %; PLT - PLATELET COUNT 235 10^3/uL (130-450); RED BLOOD COUNT 5.78 10^6/uL (4.70-6.10); RED CELL DISTRIBUTION WIDTH 13.1 % (12.0-15.0); WHITE BLOOD COUNT 15.4 x10^3/uL (4.8-10.8)
[2022-05-07 16:33] LABS: SLIDE REVIEW? Indicated
[2022-05-07 16:37] LABS: ALBUMIN 4.8 g/dL (3.2-5.5); ALBUMIN/GLOBULIN RATIO 1.4 (1.0-2.2); BILIRUBIN,TOTAL 1.2 mg/dL (0.2-1.0); CALCIUM 9.6 mg/dL (8.5-10.3); POTASSIUM 3.6 mmol/L (3.5-5.0); TOTAL PROTEIN 8.3 g/dL (6.7-8.2)
[2022-05-07 17:09] LABS: PLATELET ESTIMATE, MANUAL NORMAL (130-450,000) (NORMAL); PLATELET MORPHOLOGY NORMAL APPEARANCE (NORMAL); RBC MORPHOLOGY (MULTIPLE) NORMAL APPEARANCE (NORMAL)
[2022-05-07 17:10] LABS: DIFFERENTIAL COMMENT MANUAL=AUTO DIFF
[2022-05-07] MEDS ORDERED: ONDANSETRON 4 MG/2 ML VIAL IVP STA (18:07)
[2022-05-07] MEDS ORDERED: HYDROmorphone 1 MG/ML CARPUJECT IVP STA (18:07)
[2022-05-07] MEDS ORDERED: SODIUM CHLORIDE 0.9% 1,000 ML IV STA (18:07)
--- NOTE | 2022-05-07 18:20 | ED Physician Documentation ---
History of Present Illness - Stated complaint Stated Complaint: ABD PX - Chief complaint Chief Complaint: Abd Pain - Additonal information Additional information: 42-year-old male presents emergency department for evaluation of left lower and left upper quadrant abdominal pain. Symptoms began yesterday. He has had some vague chills and nausea. Tactile fevers. No vomiting. No melena or hematochezia. Does report a history of diverticulitis without any complicating features. Symptoms began in his 30s. He reports a colonoscopy about 2 to 3 years ago that did not show any worrisome findings. He does not take anticoagulation. Review of Systems Constitutional: reports: Chills, Fatigue Cardiac: reports: Reviewed and negative Respiratory: reports: Reviewed and negative GI: reports: Abdominal Pain, Nausea. denies: Vomiting, Hematemesis, Bloody / black stool : reports: Reviewed and negative Skin: reports: Reviewed and negative PD PAST MEDICAL HISTORY - Past Medical History Past Medical History: Yes GI: Diverticulitis - Past Surgical History Past Surgical History: No - Present Medications Home Medications: Ambulatory Orders Medication Instructions Recorded Confirmed Amox/Clav 875/125 [Augmentin] 1 each PO Q12H #20 tablet 05/07/22 HYDROcod/ACETAM 5/325 [[place] 5/325] 1 tablet PO BID PRN #10 tablet 05/07/22 - Allergies Allergies/Adverse Reactions: Allergies Allergy/AdvReac Type Severity Reaction Status Date / Time No Known Drug Allergies Allergy Verified 05/07/22 16:00 - Social History Does the pt smoke?: No Smoking Status: Never smoker Does the pt drink ETOH?: No Does the pt have substance abuse?: No - Immunizations Immunizations are current?: Yes PD ED PE NORMAL - General General: Alert and oriented X 3, No acute distress - HEENT HEENT: PERRL - Neck Neck: Supple, no meningeal sign, No adenopathy - Cardiac Cardiac: RRR, No murmur, No gallop - Respiratory Respiratory: No respiratory distress, Clear bilaterally - Abdomen Abdomen: Normal bowel sounds, Soft. No: Non tender (Mild tenderness in the left upper and lower quadrant of the abdomen without guarding or rebound. 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00 Band Neuts % (Manual) Not Reportable Abnorm Lymph % (Manual) Not Reportable Nucleated RBC % 0.0 Neutrophils # (Manual) Not Reportable Lymphocytes # (Manual) Not Reportable Monocytes # (Manual) Not Reportable Eosinophils # (Manual) Not Reportable Basophils # (Manual) Not Reportable Differential Comment MANUAL=AUTO DIFF Manual Slide Review Indicated Platelet Estimate NORMAL (130-450,000) Platelet Morphology NORMAL APPEARANCE RBC Morph Micro Appear NORMAL APPEARANCE Sodium 135 Potassium 3.6 Chloride 99 L Carbon Dioxide 25 Anion Gap 11.0 BUN 13 Creatinine 1.0 Estimated GFR (MDRD) 83 L Glucose 128 H Calcium 9.6 Total Bilirubin 1.2 H AST 29 ALT 44 Alkaline Phosphatase 54 Total Protein 8.3 H Albumin 4.8 Globulin 3.5 Albumin/Globulin Ratio 1.4 Lipase 28 Urine Color YELLOW Urine Clarity CLEAR Urine pH 6.0 Ur Specific Echo 1.015 Urine Protein NEGATIVE Urine Glucose (UA) NEGATIVE Urine Ketones TRACE Urine Occult Blood NEGATIVE Urine Nitrite NEGATIVE Urine Bilirubin NEGATIVE Urine Urobilinogen 0.2 (NORMAL) Ur Leukocyte Esterase NEGATIVE Ur Microscopic Review NOT INDICATED Urine Culture Comments NOT INDICATED - Rads (name of study) CT abd Radiology: Final report received (Acute diverticulitis without complicating features free air microperforation or abscess) PD MEDICAL DECISION MAKING - ED course Complexity details: reviewed results, re-evaluated patient, considered differential, d/w patient ED course: Well-appearing 42-year-old male presents emergency department for evaluation of 2 days left-sided abdominal pain. Has a history of diverticulitis and this feels similar. Subjective myalgias and fevers. On presentation to the emergency department he is alert and well-appearing. However he does have mild temperature elevation at 38 degrees. He is also mildly tachycardic. His CBC shows a modest leukocytosis with white count of 15.7 thousand. His electrolytes were without worrisome findings. On exam he did have tenderness though nonperitoneal in the left mid abdomen. Subsequent CT imaging was completed and it does show moderate acute left abdominal diverticulitis without complicating features. On repeat evaluation patient's heart rate has reduced now that he has received some IV fluids. As he drove here he declined analgesia. A prescription for Augmentin is being sent to the patient's preferred pharmacy. We discussed that over the next 24 to 48 hours she should have a clear liquid diet then slowly advance as pain improves. Limited prescription for Swannanoa was also sent for analgesia. Emergent return precautions were discussed for worsening symptoms I am prescribing a short course of short-acting opioid pain medication for this patient. I have reviewed the patients DIRECTOR OF [employer]ARLY CHILDHOOD EDUCATION and no concerning findings were noted. I have discussed that the opioids are for short term therapy only, and will not be refilled from the ED. Departure - Departure Disposition: 01 Home, Self Care Clinical Impression: Acute diverticulitis Condition: Stable Record reviewed to determine appropriate education?: Yes Instructions: ED Diverticulitis Prescriptions: Amox/Clav 875/125 [Augmentin] 1 each PO Q12H #20 tablet HYDROcod/ACETAM 5/325 [[place] 5/325] 1 tablet PO BID PRN #10 tablet PRN Reason: Pain Comments: Christopher you came to the emergency department today because for about 2 days you have been having some pain in your left mid abdomen. You do have a history of diverticulitis. Here in the emergency department your CBC does show a very mild white blood cell count elevation. The rest of your labs including your chemistry did not show worrisome findings. The CT scan does show some left-sided abdominal diverticulitis without complicating features such as abscess, micro perforation or free air. A prescription for Augmentin has been sent to the [facility] in [place]. Limited prescription for Swann[place]a was also sent. In general we recommend Tylenol and ibuprofen for discomfort but for severe pain you can try the [place]. For the next 24 to 36 hours I would like you to drink clear liquids only. As the antibiotics begin to work and the pain improves you can slowly advance your diet with bananas, rice, applesauce and toast. If despite the antibiotics you are having worsening pain, develop new fevers, have uncontrolled vomiting, black or bloody stools that I would like you to return immediately to the ER for a second evaluation. I am prescribing a short course of narcotic pain medication for you. These are potentially dangerous and addictive medications that should be used carefully. These medications may constipate you. Take an fdfd-sxf-vncroqs stool softener (docusate) twice daily with plenty of water while taking these medications. If you go 24 hours without a bowel movement, take [id number] miralax, per package instructions. Do not drink or drive while taking these medications. If you received narcotic or sedating medications while in the emergency department, do not drive for 24 hours. Store this medication in a safe, secure place and out of reach of children. It is a violation of federal law to give or sell this medication to another person or to use in a manner other than prescribed. The ED will not refill narcotic prescriptions, including prescriptions lost or stolen. To dispose of unwanted medications: 1. [facility] [address] in [place] has a medication drop box. They accept prescription medications (in pill form) Friday through Friday 9:00 a.m. to 5:00 p.m. 2. The [facility] [employer] accepts prescription medications (in pill form only) for disposal year round. Call for more information. 3. Contact the [facility] for the next [facility] sponsored prescription drug collection event. , [phone], or [phone]; Note that many narcotic pain relievers also contain Tylenol/acetaminophen. Please ensure that your total dose of acetaminophen from all sources does not exceed 3 g (3000 mg) per day.
[2022-05-07 19:26] VITALS: BP 131/86
[2022-05-07] MEDS ORDERED: AMOX/CLAV 875 MG/125 MG TABLET PO STA (19:44)
--- NOTE | 2022-05-07 19:47 | CT Report ---
PROCEDURE: ABDOMEN/PELVIS WO INDICATIONS: LLQ abd pain; hx of diverticulitis TECHNIQUE: Noncontrast 5 mm thick sections acquired from the diaphragms to the symphysis. 5 mm coronal and sagi ttal reformats were then performed. For radiation dose reduction, the following was used: automated exposure control, adjustment of mA and/or kV according to patient size. COMPARISON: CT abdomen pelvis 07/25/2021. FINDINGS: Image quality: Excellent. ABDOMEN: Lung bases: Right basilar atelectasis. No pleural effusion. Heart size is normal. Solid organs: Liver and spleen are normal in size. Gallbladder is unremarkable Pancreas is normal in contours. No adrenal nodules. Kidneys are normal in size, without hydronephrosis or nephrolithia sis. Peritoneum and bowel: Diverticulosis. Inflammatory change about the descending colon, (). No extr aluminal gas. No loculated fluid collection. This is consistent with diverticulitis. This is in a sim ilar location compared to the CT 07/25/2021. Normal appendix. No small bowel obstruction. Stomach is no t distended. No pneumoperitoneum or ascites. Nodes and vessels: No retroperitoneal or mesenteric adenopathy by size criteria. Aorta and inferior vena cava are normal in caliber. Miscellaneous: No ventral hernias. PELVIS: Genitourinary: Bladder wall thickness is normal. Miscellaneous: No inguinal hernias or adenopathy. Thoracic clips. Bones: No suspicious bony lesions. No vertebral body compression fractures. IMPRESSION: Acute left abdomen diverticulitis. No abscess. Results were communicated to Dr. Teresa Freeman at 05/07/2022 7:43 PM PDT. Reviewed by: Carlito Valentin MD on 05/07/2022 7:45 PM PDT Approved by: Carlito Valentin MD on 05/07/2022 7:45 PM PDT Station ID: [id number]
== END 2022-05-07 20:08 | disposition home or self-care (01) ==
LOC: ED 15:55
DX: K57.32 Diverticulitis of large intestine without perforation or abscess without bleeding (principal)
CPT/HCPCS: 36415; 74176; 80053; 81003; 83690; 85025; 96360; 99282; 99284; A9270; 81001; 87086

== ENCOUNTER 2022-05-22 10:45 | Outpatient (CLI) | payer OTHER ==
--- NOTE | 2022-05-22 12:39 | MRI Report ---
PROCEDURE: KNEE WO - RT INDICATIONS: RIGHT KNEE PAIN TECHNIQUE: Noncontrast sagittal PD fast spin echo and T2 fast spin echo with fat saturation, sagittal 3-D spoile d GE with fat saturation; coronal T1 spin echo and PD fast spin echo with fat saturation, and axial P D fast spin echo with fat saturation through the knee. COMPARISON: Right knee MRI 07/05/2021 FINDINGS: Image quality: Excellent. Anterior cruciate ligament: Intact. Posterior cruciate ligament: Intact. Medial collateral ligament: Intact. Lateral collateral ligament: Intact. Medial meniscus: Intermediate intrasubstance signal is seen in the body lateral meniscus that approa ches the tibial articular surface. Lateral meniscus: Intact. Medial and lateral tendons: The semimembranosus tendon insertions appear intact. Visualized portion s of the pes anserinus tendons appear normal. The popliteus tendon appears intact. Iliotibial band appears normal. Anterior structures: The quadriceps and patellar tendons appear intact. Patellar alignment is nii l. No femoral trochlear dysplasia or ventral trochlear prominence. No edema in the infrapatellar fa t pad. Bones: Mild osseous edema at the inferomedial aspect of the patella. No acute fracture line is seen. No additional osseous edema or contusion is seen. Medial femorotibial cartilage: Intact. Lateral femorotibial cartilage: Intact. Patellofemoral cartilage: Partial-thickness cartilage cartilage irregularity is seen at the median r idge and medial facet of the patella and at the trochlear groove. Soft tissues: There is a small joint effusion. There is a small medial popliteal cyst. The musculat ure surrounding the knee is normal in bulk. Mild nonspecific prepatellar subcutaneous soft tissue abel ma. IMPRESSION: 1.Mild osseous edema at the inferomedial patella may be secondary to a direct contusion. Transient la teral patellar dislocation is less likely given lack of other findings of this phenomenon. 2.Intermediate intrasubstance signal at the body of the medial meniscus approaches the inner third of the tibial articular surface and may represent intrasubstance degeneration or a subtle horizontal ob lique tear. 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 4.Small joint effusion. Small medial popliteal cyst extending inferiorly along the distal hamstring t endons. Reviewed by: Cecil Campbell MD on 05/22/2022 12:38 PM PDT Approved by: Cecil Campbell MD on 05/22/2022 12:38 PM PDT Station ID: [id number]
== END 2022-05-22 10:46 | disposition home or self-care (01) ==
LOC: DI 10:45
PROVIDERS: ATTEND Nurse Practitioner Family
DX: M22.41 Chondromalacia patellae, right knee (principal); M25.461 Effusion, right knee; M71.21 Synovial cyst of popliteal space [Baker], right knee; R60.0 Localized edema

== ENCOUNTER 2022-07-24 12:59 | Outpatient (CLI) | payer OTHER ==
[2022-07-24 13:31] VITALS: BP 110/68
--- NOTE | 2022-07-24 13:31 | SLEEP CARE CONSULTATION ---
Information from patient questionnaire entered by Khadijah Holt. I have reviewed and concur with the information entered by Khadijah Holt. This document represents the service I personally performed and the decisions made by me, Chelsy Mccarthy ARNP. History of Present Illness Service Date and Time: 07/24/2022 1259 Previous diagnosis: Mild, Obstructive Sleep Apnea-Hypopnea Syndrome AHI: 14.7 (in 2019) Reason for follow up: annual (LAST SEEN 11/2020) Equipment type: CPAP (RESMED Airsense 10, last updated 06/05/2020) Equipment obtained from: Other ([facility]; getting supplies) Mask style: Full face Mask brand: Respironics ([email or web address]) Backup mask available: Yes (old mask) Last cushion change: 1 month Prior sleep studies: Yes Year and Where: 2019 - [facility] Type of Sleep Study: Polysomnography HPI additional information: DOROTHY LUQUE was diagnosed to have mild, AHI 14.7, obstructive sleep apnea- hypopnea syndrome and returned today for CPAP therapy annual follow-up. Sleep Study - Results Type of Sleep Study: Polysomnography Prior sleep studies: Yes Year and Where: 2019 - [facility] CPAP Compliance Data - Data Reviewed with Patient Average duration of nightly device use: 6 HRS 35 MIN Compliance rate %: 70 (01/24/22-07/22/22; 133/180 days used) Average residual AHI: 2.0 Central apnea: 0.6 Obstructive apnea: 1.2 Average large leak: 1.8 lpm Subjective Missed days of use due to: reports: other (falls asleep while watching TV; sometimes takes off when asleep) Patient concerns: reports: condensation in mask/hose, nasal congestion (1-2 times a week), dry mouth, nose, throat (on auto for humidifier). denies: aerophagia, mask discomfort, air blowing in eyes, mask leak noise, epistaxis Observed to snore while using device: Yes Current pressure setting perceived as: too low On therapy, patient: reports: sleeping better, awakening more refreshed, being more awake and alert during the day, more rested overall. denies: drowsiness while driving Initial [place] Sleepiness Scale score: 7 (in 2019) Current [place] Sleepiness Scale score: 9 (07/24/22) Allergies and Home Medications Drug allergies reviewed: Yes (NKDA) Home medication list reviewed: Yes (Maxalt, as needed for migraines) Review of Systems Review of systems same as previous: Yes (no changes) Physical Exam Vital signs obtained and entered by: KHADIJAH Velázquez MA Blood Pressure: 110/68 (LEFT ARM) Cuff size: regular Heart Rate: 90 O2 Saturation: 96 Height: 6 ft 2 in Weight: 271 lb 3.2 oz Body Mass Index: 34.8 BMI Classification: Obese Impression and Plan 1. Obstructive Sleep Apnea-Hypopnea Syndrome, mild, with good treatment compliance and good apnea control. On CPAP therapy, the patient has better sleep quality and is more rested overall. Patient's states he is snoring when he uses his CPAP. He feels like he could use a little more pressure. To resolve snore, the CPAP pressure will be changed to 10-12 cmH20. Patient advised to contact this office if pressure change uncomfortable or if pressure change does not resolve snore or is uncomfortable. Patient's apnea severity and rationale for treatment to reduce apnea, improve sleep quality and reduce cardiovascular and cerebrovascular events was reviewed. 2. Obesity, unspecified. Currently patients BMI is 34.8. Obesity increases the risk of apnea, CPAP pressure requirements and overall health risks especially cardiovascular and diabetes. Thus patient is advised to lose weight. * Change auto CPAP pressure to 10-12 cmH2O * Update supplies * Notify me if snoring with mask or feeling that the pressure is too much or too little * Attempt to lose weight * Call this office if any problems using CPAP * Return for follow up in 1 year, or sooner if concerns arise Counseling Topics: Spare mask, Weight loss health impact Visit Type: In Office Time Spent with Patient (minutes): 20 Provider Statement: I spent 100% of the Face to Face Visit with the patient with greater than 50% spent counseling the patient and coordination of care.
== END 2022-07-24 13:00 | disposition home or self-care (01) ==
LOC: SC 12:59
PROVIDERS: ATTEND Nurse Practitioner Family
DX: G47.33 Obstructive sleep apnea (adult) (pediatric) (principal); E66.9 Obesity, unspecified; Z68.34 Body mass index [BMI] 34.0-34.9, adult
CPT/HCPCS: 99212; 99213